=== PATIENT | female | born 1960 | race African-American/Black ===

== ENCOUNTER 2021-06-08 17:31 | Emergency (ER) | payer MEDICAID ==
[~2021-06-08] VITALS: Ht 167.6 cm; Wt 66.0 kg
[2021-06-08] MEDS ORDERED: MORPHINE SULFATE 4 MG/ML CPJ (NOT FOR IM USE) IV STA (18:01)
[2021-06-08] MEDS ORDERED: ONDANSETRON HCL 4MG/2ML INJ IV STA (18:01)
[2021-06-08] MEDS ORDERED: MAGNESIUM/ALUMINUM HYDROXIDE/SIMETHICONE 30ML UDC PO STA (18:11)
[2021-06-08] MEDS ORDERED: VISCOUS LIDOCAINE 2% 15 ML UDC PO STA (18:11)
[2021-06-08] MEDS ORDERED: SODIUM CHLORIDE 0.9% 1,000 ML IV ONE (18:15)
[2021-06-08 18:47] LABS: BASOPHILS % 0.9 % (0.0-2.0); EOSINOPHILS % 5.8 % (0.0-5.0); HEMATOCRIT. 34.4 % (36.0-48.0); HEMOGLOBIN. 11.8 g/dL (12.0-16.0); LYMPHOCYTES % 42.4 % (20.0-50.0); MEAN CORPUSCULAR HEMOGLOBIN 28.9 pg (28.0-32.0); MEAN PLATELET VOLUME 8.4 fl (7.4-10.4); MONOCYTES % 6.5 % (2.0-8.0); NEUTROPHILS % 44.4 % (40.0-76.0); PLATELET 232 x1000/uL (130-400); RED BLOOD CELL COUNT 4.09 mill/uL (4.2-5.4)
[2021-06-08 19:00] LABS: PROTHROMBIN TIME 10.9 sec (9.6-11.0)
[2021-06-08 19:27] LABS: CHLORIDE 107 mEq/L (98-107)
[2021-06-08 19:33] LABS: ETHANOL BLOOD < 10 mg/dL
[2021-06-08] MEDS ORDERED: MAG355OR21 MT (20:51)
[2021-06-08] MEDS ORDERED: PANT20TA17 MT (20:51)
[2021-06-08 21:35] VITALS: BP 165/82
== END 2021-06-08 21:37 | disposition home or self-care (01) ==
LOC: ER 17:31
DX: K21.9 Gastro-esophageal reflux disease without esophagitis (principal); I10 Essential (primary) hypertension; E11.9 Type 2 diabetes mellitus without complications; F17.200 Nicotine dependence, unspecified, uncomplicated; Z79.899 Other long term (current) drug therapy; E86.0 Dehydration
CPT/HCPCS: 36415; 71045; 76705; 80053; 80320; 83605; 83690; 84484; 85025; 85610; 93005; 96361; 96374; 99285; J2405; J7030; G0480

== ENCOUNTER 2025-07-17 12:42 | Emergency (ER) | payer MEDICAID, OTHER ==
[~2025-07-17] VITALS: Ht 167.6 cm; Wt 84.0 kg
[~2025-07-17 12:42] MED LIST: MAG355OR21 MT; PANT20TA17 MT
[2025-07-17 14:09] LABS: BASOPHILS % 0.9 % (0.0-2.0); EOSINOPHILS % 0.5 % (0.0-5.0); HEMATOCRIT. 39.4 % (36.0-48.0); HEMOGLOBIN. 13.1 g/dL (12.0-16.0); LYMPHOCYTES % 25.1 % (20.0-50.0); MEAN PLATELET VOLUME 8.9 fl (7.4-10.4); MONOCYTES % 7.3 % (2.0-8.0); NEUTROPHILS % 66.2 % (40.0-76.0); PLATELET 199 x1000/uL (130-400); RED BLOOD CELL COUNT 4.37 mill/uL (4.2-5.4); RED CELL DISTRIBUTION WIDTH 15.1 % (11.6-14.6)
[2025-07-17 14:20] LABS: INR 0.9
[2025-07-17 14:28] LABS: CREATININE 0.8 mg/dL (0.6-1.0); UREA NITROGEN BLOOD 11 mg/dL (9-23)
[2025-07-17 14:30] LABS: ASPARTATE AMINOTRANSFERASE 34 IU/L (<34); BILIRUBIN DIRECT < 0.1 mg/dL (<=3.0); BILIRUBIN TOTAL 0.4 mg/dL (0.1-1.0); PROTEIN TOTAL 7.5 g/dL (6.0-8.3)
[2025-07-17] MEDS: METHYLPREDNISOLONE SOD SUCC 125MG/2ML (ACT-O-VIAL) IV ONE (14:32)
[2025-07-17 14:34] LABS: TROPONIN I HIGH SENSITIVITY 45 ng/L (3.0-34)
[2025-07-17] MEDS: IPRATROPIUM BROMIDE (0.02%) 0.5MG/2.5ML NEB HHN SCH (14:39)
[2025-07-17] MEDS: ALBUTEROL (0.083%) 2.5MG/3ML NEB HHN SCH (14:39)
[2025-07-17 15:16] VITALS: PULSE 76; RESP 16; O2SAT 98
[2025-07-17] MEDS: ASPIRIN 325MG EC TABLET PO ONE (15:42)
[2025-07-17] MEDS ORDERED: CLONIDINE 0.1MG TABLET PO PRN (19:30)
[2025-07-17] MEDS ORDERED: ONDANSETRON HCL 4MG/2ML INJ IV PRN (19:30)
[2025-07-17] MEDS ORDERED: ACETAMINOPHEN 325MG TABLET PO PRN (19:30)
[2025-07-17] MEDS ORDERED: HYDROCODONE/ACETAMINOPHEN 5/325MG TABLET PO PRN (19:30)
[2025-07-17] MEDS ORDERED: MAGNESIUM/ALUMINUM HYDROXIDE/SIMETHICONE 30ML UDC PO PRN (19:30)
[2025-07-17] MEDS ORDERED: ZOLPIDEM TARTRATE 5MG TABLET PO PRN (19:30)
[2025-07-17] MEDS: IPRATROPIUM BROMIDE (0.02%) 0.5MG/2.5ML NEB INH SCH (20:03)
[2025-07-17 20:09] VITALS: PULSE 71; RESP 24; O2SAT 97
[2025-07-17 20:44] LABS: TROPONIN I HIGH SENSITIVITY 40 ng/L (3.0-34)
[2025-07-17] MEDS: METHYLPREDNISOLONE SOD SUCC 40MG/ML (ACT-O-VIAL) IV SCH (22:00)
[2025-07-17] MEDS: ENOXAPARIN 40MG/0.4ML SYR SUBCUT SCH (22:21)
[2025-07-17 22:43] VITALS: BP 163/86; PULSE 76; RESP 16; TEMP 36.4; O2SAT 100
[2025-07-18] MEDS ORDERED: PANTOPRAZOLE SODIUM 40 MG/VIAL IV SCH (09:00)
[2025-07-18] MEDS ORDERED: FUROSEMIDE 40MG/4ML VIAL IVP SCH (09:00)
== END 2025-07-17 22:56 | disposition short-term general hospital (02) ==
LOC: ER 12:55 → CANBEDREQ 16:38 → ER 22:56 → CMPBEDREQ 07-18 07:52
DX: R07.89 Other chest pain (principal); R06.02 Shortness of breath; J44.1 Chronic obstructive pulmonary disease with (acute) exacerbation; I11.0 Hypertensive heart disease with heart failure; I50.9 Heart failure, unspecified; E11.65 Type 2 diabetes mellitus with hyperglycemia; Z79.899 Other long term (current) drug therapy
CPT/HCPCS: 80076; 80048; 83880; 83690; 85025; 85610; 84484; 36415; 71045; 93970; 94640; 93005; 96374; 99291; J2919; Z7610 ×3; 94070; 94664; 94760